=== PATIENT | female | born 1970 | race Hispanic/Latino ===

== ENCOUNTER → 2021-10-03 | Day surgery (SDC) | payer BC ==
[~2021-10-03] MED LIST: BOTULINUM TOXIN TYPE A 100 UNIT VIAL IM ONE; CALCIUM PO; CEFTRIAXONE 1 GM VIAL ONE; CYMBALTA60 MG PO; DEXAMETHASONE SOD PHOS INJ 4 MG/ML SDV ONE; DEXILANT60 MG PO; ESTRADIOL1 MG PO; IOPAMIDOL 610MG/1ML 300 MG/ML VIAL IV ONE; LIDOCAINE HCL 2% LOCAL INJ 5 ML SDV VIAL INJ ONE; MIDAZOLAM HCL 2 MG/2 ML VIAL ONE; MYRBETRIQ50 MG PO; OMEGA-31000 MG PO; ONDANSETRON HCL INJ 2MG/ML 2ML 2 MG/ML VIAL ONE; POVIDONE IODINE 0.05% 0.05 % ML PO ONE; PRAVASTATIN SOD40 MG PO; PROPOFOL IV EMULSION 10 MG/ML 20 ML VIAL ONE; SAXENDA INJ; SEVOFLURANE INHAL SOLN 250 ML PEN BTL ONE; SYNTHROID50 MCG PO; TRICOR145 MG PO; VITAMIN D PO
[2021-10-03 09:10] VITALS: BP 116/71
== END | disposition home or self-care (01) ==
LOC: OR 07:21
PROVIDERS: ATTEND Urology
DX: N39.41 Urge incontinence (principal); N39.0 Urinary tract infection, site not specified; N81.10 Cystocele, unspecified; R35.1 Nocturia; I10 Essential (primary) hypertension; K28.9 Gastrojejunal ulcer, unspecified as acute or chronic, without hemorrhage or perforation; K76.0 Fatty (change of) liver, not elsewhere classified; E03.9 Hypothyroidism, unspecified; Z88.1 Allergy status to other antibiotic agents; F41.9 Anxiety disorder, unspecified; Z01.812 Encounter for preprocedural laboratory examination; Z20.822 Contact with and (suspected) exposure to COVID-19
CPT/HCPCS: 0223U; 36415; 52005; 52287; 74420; J0587; J0696; J1100; J2001; J2250; J2405; J2704; Q9967